=== PATIENT | female | born 1935 | race Caucasian/White ===

== ENCOUNTER 2025-02-24 10:17 | Outpatient (CLI) | payer BC ==
[~2025-02-24 10:17] MED LIST: ALPR-624 PO; ASPI-1265 PO; CALC-1051 PO; CARV6.253 PO; ESCI10TA PO; ESOM40CA49 PO; FURO40TA4 PO; GABA300C PO; MULT-933 PO; POTA-366 PO; TAMO20TA4 PO; WEL625T PO
--- NOTE | 2025-02-25 05:21 | CONSULTATION ---
DATE OF CONSULTATION: 02/24/2025 DICTATING PHYSICIAN: Gale Galvez M.S., [facility] MODIFIED BARIUM SWALLOW STUDY REPORT REFERRING PHYSICIAN: Harriett Powell MD. HISTORY OF PRESENT ILLNESS: The patient is an 89-year-old female and consents to this evaluation. 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 She initially had an earache and tried medications for an ear infection, which did not help her pain. Further pain medications did not help her pain as well. She went to [facility] on 09/25/2024 and had a modified barium swallow study due to symptoms of dysphagia while in the hospital. She had a PEG tube placed and had been mostly on a liquid diet. 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 The patient had a baseline weight of 132 pounds. She began to see this clinician for swallowing therapy on 12/15/2024 and weighed 114 pounds. At that time, she was mostly having a liquid diet and had been trying some different food items in the last week including ground beef where she has had to have a large amount of fluid between bites, pudding, and blended soup. The patient reports that at this time, she weighs 113.8 pounds. She is now able to eat almost anything that she has tried. Bread, she has to be very careful about chewing thoroughly before she swallows, but that she has to use a large amount of water to help push whatever food item she is eating through her esophagus. The patient is currently still utilizing her PEG tube for nutrition 1-2 times a day, but reports that it has been clogging up. She is interested in seeing where her swallowing is at to see if she can have her PEG tube removed. CURRENT DIET: A typical breakfast consists of a banana, dried cereal, or a muffin. She then has a lunch of half a sandwich and her dinner consists of a meat with a vegetable. She has snacks throughout the day that might be pudding. She used to be drinking protein shakes, but she has not in sometime. MEDICATIONS: Acyclovir 400 mg 1 tablet p.o. b.i.d., alprazolam 0.5 mg 1 tablet p.o. at bedtime, Astelin 127 mcg/INH 0.1% nasal spray 137 mcg 1 spray b.i.d. p.r.n., calcium carbonate 600 mg 1 tablet p.o. daily, Cardizem CD 120 mg/24 hours ER 1 capsule p.o. daily, Eliquis 5 mg 1 tablet p.o. b.i.d., esomeprazole 40 mg 1 capsule p.o. daily, Flecainide mg 1 tablet p.o. b.i.d., furosemide 40 mg 1 tablet p.o. daily, Lyrica 75 mg 1 capsule p.o. daily, potassium chloride 20 mEq ER 1 tablet p.o. daily, and Zofran ODT 4 mg 1 tablet p.o. p.r.n. PARAMETERS: The patient is seated in a lateral 90-degree view and administered the usual protocol of thin and nectar thick liquids, puree, and solid consistencies as well as self-regulated boluses of thin liquid in the cup. RESULTS: In the oral stage of the swallow, lingual strength is mild to moderately reduced. There was a mild oral residue following the initial swallow of boluses. In the pharyngeal stage of the swallow, tongue base retraction was moderately reduced. Swallow initiation was within functional limits. Anterior movement of the posterior pharyngeal wall is observed. Elevation of the hyothyroid complex is accomplished with mildly decreased range of motion. Elevation of the hyothyroid complex was accomplished with moderately reduced range of motion. There is a moderate to severe reduction in PES opening. There is a moderate to severe pharyngeal residue following the initial swallow boluses with each swallow having at least half of the bolus still residing in the pharyngeal cavity following the initial swallow. The patient was noted to have penetration on the 1 mL, 3 mL and 5 mL thin liquid boluses and aspiration on the 5 mL and self-regulated bolus of the thin liquid from the cup. With these penetration and aspiration events, it was noted to occur on the residue that was in the pharynx rather than on the initial swallow. The patient did not demonstrate any spontaneous clearance and so she had to be cued to clear this residue from the airway. ANTERIOR, POSTERIOR VIEW: In the AP plane, there was noted to be a right piriform sinus dysfunction and no proximal movement of the bolus was noted. 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 DIAGNOSES: * R13.12, dysphagia oropharyngeal phase. * B02.9, shingles. 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 * R63.30 feeding difficulties. PATIENT EDUCATION: Immediately following modified barium swallow study, the patient was able to view the results. A normal anatomy of the swallowing mechanism was revealed. She was able to see how the current status of the swallowing mechanism decreases her ability to swallow normally. The patient was educated on a recommendation to return to Speech Therapy Services as her last appointment had been on 01/06/2025 due to the patient needing to take a pause on her swallowing therapy appointments due to busy medical schedule at this time. She indicated she would very much like to return for services, but she needed her other appointments to slow down first before beginning to return for services and that she has been continuing to complete her swallowing exercises independently. The patient was also educated on the need to increase her oral caloric intake with more frequent oral intake throughout the day. She was educated on using a breath hold maneuver when swallowing, so making sure that she swallows at least twice before taking a breath to decrease the amount that she is penetrating or aspirating on pharyngeal residue and to clear her throat from time to time when drinking liquids even if she does not feel anything in her airway. RECOMMENDATIONS: * When it would be recommended that the patient return for swallowing therapy once weekly for 12 weeks to improve the strength of the swallowing musculature. The patient is interested in returning for swallowing therapy, but she indicated that she needs her other appointments to slow down first as she does not have any time to come in for her swallowing therapy appointments at this current time. * It was recommended that the patient utilize safe swallowing strategies including the breath hold maneuver and clearing her throat when drinking liquids. * The patient would be okay to have PEG tube removal based on the functionality of the swallow; however, she does need to increase her oral intake to ensure that she is meeting her caloric needs without use of supplemental nutrition prior to PEG tube removal. LONG-TERM GOALS: The patient will maintain adequate hydration/nutrition with optimum safety and efficiency of swallow function on p.o. intake without overt signs and symptoms of aspiration for the highest possible diet level. PROGNOSIS: Prognosis for the patient is good in terms of patient motivation and willingness to learn. FUNCTIONAL ORAL INTAKE: The FOIS was administered to establish and document a change in the functional eating activities of this patient overtime. This is a 7-point scale with 1 indicating no oral intake and totally tube dependent and 7 indicating total oral intake with no restrictions. This patient receives a 7, which indicates total oral intake with no restrictions. G-CODE: [id number]. Thank you very much for asking me to participate in the care of this kind patient. Should you have any questions regarding this evaluation or recommendations, please do not hesitate to contact me at [phone]. During this examination, 04:24 minutes of fluoroscopy time and 09.58 CAK and mGy were utilized. Gale Galvez M.S., [facility] [facility] TID: [id number] RECEIPT: [id number] NIRAV/M Robbin BURRELL
== END 2025-02-24 23:59 | disposition home or self-care (01) ==
LOC: RAD 10:17
PROVIDERS: ATTEND Psychiatry & Neurology Neurology
DX: R13.10 Dysphagia, unspecified (principal); R63.30 Feeding difficulties, unspecified; R13.12 Dysphagia, oropharyngeal phase; B02.9 Zoster without complications; J30.0 Vasomotor rhinitis
CPT/HCPCS: 74230